=== PATIENT | female | born 1955 | race Caucasian/White ===

== ENCOUNTER 2016-09-12 23:59 | Emergency (ER) | payer OTHER ==
[~2016-09-12] VITALS: Ht 160 cm; Wt 142.6 kg
[~2016-09-12 23:59] MED LIST: BENTYL20 MG PO; BYETTA10 MCG/0.0 SQ; CARTIA XT240 MG PO; CELEBREX200 MG PO; CLEOCIN300 MG PO; COUMADIN,JANTOVE2 MG PO; ERGOCALCIF50000 UNIT PO; HYDROCODON-ACE1 EAC7 PO; KEFLEX500 MG PO; KLOR-CON M2020 MEQ PO; LASIX40 MG PO; LEVEMIR FL100 UNIT/1 SC; LEVEMIR FL100 UNITS/ SC; MAVIK1 MG PO; OSTEO BI-FLEX1 EAC1 PO; OSTEO BI-FLEX1 EAC2 PO; OSTEO-BIFLE1 CAPSULE PO; Osteo-Biflex,Flex-A- PO; PAXIL10 MG PO; PAXIL20 MG PO; PRADAXA150 MG PO; PRAVACHOL40 MG PO; PRAVASTATIN SOD40 MG PO; PREVACID30 MG PO; SPIRONOLACTONE25 MG PO; TOPROL XL200 MG PO; TRANDOLAPRIL1 MG PO; VITAMIN D; VITAMIN D250000 UNIT PO; ZOFRAN ODT4 MG PO
[2016-09-13 00:03] VITALS: BP 162/95
[2016-09-13 00:52] LABS: HEMATOCRIT 45.5 % (36.0-46.0); MCH 29.4 PG (29.0-34.0); MCHC 33.8 G/DL (30.0-36.0); MCV 86.8 FL (83-99); MEAN PLAT.VOLUME 11.7 uM^3 (9.5-12.4); PLATELET COUNT 248 K/uL (156-360); RBC DIS.WIDTH-CV 14.4 % (11.8-14.6); RBC DIS.WIDTH-SD 45.8 % (39-53); RED BLOOD COUNT 5.24 M/uL (3.80-5.20); WHITE BLOOD COUNT 19.7 K/uL (4.1-10.2)
[2016-09-13 01:10] LABS: CHLORIDE 107 mEq/L (99-109); POTASSIUM 4.1 mEq/L (3.7-5.4); SODIUM 144 mEq/L (136-147)
[2016-09-13 01:12] LABS: GLUCOSE 166 mg/dL (70-99)
[2016-09-13 01:13] LABS: ANION GAP 15 MEQ/L (2-14)
[2016-09-13 01:14] LABS: TOTAL BILIRUBIN 0.6 mg/dL (0.0-1.0)
[2016-09-13 01:15] LABS: ALKALINE PHOSPHATASE 142 IU/L (3-129); GFR ESTIMATE (CALCULATED) 44 mL/min/
[2016-09-13 01:17] LABS: UREA NITROGEN (BUN) 24 mg/dL (9-23)
== END 2016-09-13 01:07 | disposition left against medical advice (07) ==
LOC: EME 23:59
DX: R11.10 Vomiting, unspecified (principal); Z53.21 Procedure and treatment not carried out due to patient leaving prior to being seen by health care provider
CPT/HCPCS: 80053; 81003; 85027